=== PATIENT | female | born 1950 | race Caucasian/White ===

== ENCOUNTER 2021-09-26 18:43 | Emergency (ER) | payer OTHER ==
[2021-09-26 19:19] LABS: BASOPHIL 0.5 % (0-2); EOSINOPHIL 0.2 % (0-7); HCT 45.3 % (37.0-47.0); HGB 14.4 g/dl (12.5-16.0); LYMPHOCYTE 10.4 % (15-48); MCH 28.3 pg (25.0-31.0); MCHC 31.8 g/dL (32.0-36.0); MPV 11.8 fL (6.0-9.5); NEUTROPHIL 81.3 % (41-80); NRBC 0; PLT 178 K/uL (150-400); RBC 5.09 M/uL (4.20-5.40); RDW 15.7 % (11.5-14.0); WBC 8.1 K/uL (4.0-10.5)
[2021-09-26 19:32] LABS: INR 1.2 (0.9-1.2); PROTHROMBIN TIME 14.6 SECONDS (11.8-13.4); PTT 30.2 SECONDS (24.4-34.7)
[2021-09-26 19:42] LABS: ALBUMIN 3.5 g/dL (3.4-5.0); BILIRUBIN - TOTAL 0.7 mg/dL (0.2-1.0); BUN/CREAT RATIO (CALC) 15.7 RATIO; CREATININE 1.59 mg/dL (0.51-0.95); GLOBULIN (CALCULATION) 3.9 g/dL; LACTIC ACID 3.5 mmol/L (0.4-1.9); POTASSIUM 5.8 mmol/L (3.5-5.1); TOTAL PROTEIN 7.4 g/dL (6.4-8.2)
[2021-09-26 20:09] LABS: CORONAVIRUS 2019 SARS-COV-2 NEGATIVE (NEGATIVE); INFLUENZA A NAA NEGATIVE (NEGATIVE)
[2021-09-26 20:36] LABS: BILIRUBIN NEGATIVE (NEGATIVE); BLOOD NEGATIVE Ery/uL (NEGATIVE); CLARITY CLEAR (CLEAR); COLOR YELLOW (YELLOW); GLUCOSE (U) 3+ mg/dL (NORMAL); LEUKOCYTES NEGATIVE Leu/uL (NEGATIVE); NITRITE NEGATIVE (NEGATIVE); PROTEIN 1+ mg/dL (NEGATIVE); UROBILINOGEN 0.2 mg/dL (0.2-1.0); pH 7.5 (5.0-9.0)
[2021-09-26 20:43] LABS: BACTERIA TRACE
[2021-09-26 21:49] LABS: BUN/CREAT RATIO (CALC) 15.2 RATIO; CREATININE 1.58 mg/dL (0.51-0.95)
[2021-09-26 21:50] LABS: POTASSIUM 4.3 mmol/L (3.5-5.1)
== END 2021-09-26 22:00 | disposition other institution (70) ==
LOC: FER 18:43
PROVIDERS: Internal Medicine
DX: I63.9 Cerebral infarction, unspecified (principal); E11.00 Type 2 diabetes mellitus with hyperosmolarity without nonketotic hyperglycemic-hyperosmolar coma (NKHHC); E11.65 Type 2 diabetes mellitus with hyperglycemia; E87.2 Acidosis; I48.91 Unspecified atrial fibrillation; G93.41 Metabolic encephalopathy; I11.0 Hypertensive heart disease with heart failure; I50.9 Heart failure, unspecified; R29.710 NIHSS score 10; Z88.0 Allergy status to penicillin; Z88.5 Allergy status to narcotic agent; Z20.822 Contact with and (suspected) exposure to COVID-19
CPT/HCPCS: 36415; 70450; 71045; 80048; 80053; 81001; 82010; 83605; 84484; 85025; 85610; 85730; 87040; 87076; 87088; 87186; 93005; 96365; 96375; J0692; J7030; U0002